=== PATIENT | male | born 1985 | race Asian ===

== ENCOUNTER 2023-02-09 14:53 | Emergency (ER) | payer MEDICAID ==
[~2023-02-09] VITALS: Ht 170.2 cm; Wt 58.1 kg
[2023-02-09 15:21] VITALS: BP 124/80; PULSE 80; RESP 18; TEMP 97.6; O2SAT 100
[2023-02-09 15:26] LABS: BASOPHILS % (AUTO) 0.5 % (0.0-2.0); EOSINOPHILS # (AUTO) 0.3 K/uL (0-0.4); EOSINOPHILS % (AUTO) 4.2 % (0.0-4.0); HEMATOCRIT 48.1 % (36-52); HEMOGLOBIN 16.2 g/dL (12.0-18.0); LYMPHOCYTES # (AUTO) 2.6 K/uL (2.0-11.5); LYMPHOCYTES % (AUTO) 36.6 % (20.5-51.1); MEAN CORPUSCULAR HEMOGLOBIN 31 pg (27-31); MEAN CORPUSCULAR HGB CONC 34 g/dL (33-37); MEAN CORPUSCULAR VOLUME 91.7 fL (80-94); MONOCYTES # (AUTO) 0.4 K/uL (0.8-1.0); MONOCYTES % (AUTO) 5.5 % (1.7-9.3); NEUTROPHILS # (AUTO) 3.8 K/uL (1.8-7.7); NEUTROPHILS % (AUTO) 53.2 % (42.2-75.2); PLATELET COUNT (AUTO) 290 K/uL (140-450); RED BLOOD CELL COUNT(AUTO) 5.25 MIL/uL (4.20-6.10); RED CELL DISTRIBUTION WIDTH 13.8 % (11.6-13.7); WHITE BLOOD COUNT (AUTO) 7.2 K/uL (4.8-10.8)
[2023-02-09 15:39] LABS: ALBUMIN 3.7 g/dL (3.4-5.0); ANION GAP 12.9 (8-16); CALCIUM 8.5 mg/dL (8.5-10.1); CARBON DIOXIDE 27.8 mmol/L (21-32); POTASSIUM 3.7 mmol/L (3.5-5.1); TOTAL BILIRUBIN 0.4 mg/dL (0.0-1.0); TOTAL PROTEIN, SERUM 7.5 g/dL (6.4-8.2)
[2023-02-09 17:05] LABS: APPEARANCE,URINE CLEAR (CLEAR); BILIRUBIN,URINE NEGATIVE (NEGATIVE); BLOOD, URINE NEGATIVE (NEGATIVE); COLOR,URINE YELLOW (YELLOW); LEUKOCYTE ESTERASE ,URINE NEGATIVE (NEGATIVE); NITRITE, URINE NEGATIVE (NEGATIVE); PH,URINE 7.5 (5.0-9.0); PROTEIN,URINE NEGATIVE (NEGATIVE); UGLUCOSE NEGATIVE (NEGATIVE); UROBILINOGEN,URINE 0.2 EU/dL (0.2 - 1)
[2023-02-09] MEDS ORDERED: MORPHINE SULFATE 4 MG/ML SYR IVP ONE (17:05)
[2023-02-09 18:50] VITALS: BP 124/80; PULSE 80; RESP 18; TEMP 97.6; O2SAT 100
== END 2023-02-09 18:50 | disposition home or self-care (01) ==
LOC: MED 14:53
DX: R10.30 Lower abdominal pain, unspecified (principal); Z98.890 Other specified postprocedural states
CPT/HCPCS: 36415; 74177; 80053; 81003; 83690; 85025; 96374; 99285; J2270; Q9967